=== PATIENT | female | born 2000 | race Two or more races ===

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

== ENCOUNTER 2020-03-29 15:48 | Emergency (ER) | payer OTHER, MEDICAID ==
[~2020-03-29] VITALS: Ht 160 cm; Wt 63.5 kg
[2020-03-29 17:10] VITALS: BP 110/72
== END 2020-03-29 17:11 | disposition home or self-care (01) ==
LOC: ER 15:48
DX: F41.9 Anxiety disorder, unspecified (principal); R51 Headache; V49.9XXA Car occupant (driver) (passenger) injured in unspecified traffic accident, initial encounter; Y93.89 Activity, other specified; Y92.89 Other specified places as the place of occurrence of the external cause; Y99.8 Other external cause status
CPT/HCPCS: 70450; 72125